=== PATIENT | male | born 1985 | race Caucasian/White ===

== ENCOUNTER 2024-05-13 10:27 | Emergency (ER) | payer BC, SELFPAY ==
[2024-05-13 10:30] VITALS: BP 127/97
[2024-05-13 10:31] VITALS: BMI 28.5
[2024-05-13 10:32] VITALS: BP 127/97
[2024-05-13 11:00] VITALS: BP 132/89
--- NOTE | 2024-05-13 11:13 | ED.GENMED ---
History of Present Illness
General
Chief Complaint: Visual Problem
Source: patient and spouse
Exam Limitations: none
Time Seen by Provider: 05/13/24 10:47
Nursing documentation reviewed up to this point in time: agreed with
History of Present Illness
History of Present Illness:
Patient is a 38-year-old male who presents to the emergency department with a frontal headache after having an episode that started at 915 and resolved at 10:00 of visual blurring with spots as well as left visual field blurring and double vision.
Patient then developed a headache. Patient denies any nausea or vomiting. Patient denies any recent illnesses or injuries. Patient does have mild myopia and astigmatism but only wears glasses at work. Patient denies any previous history of
similar episodes. Patient denies any ataxia, numbness, paresthesias, focal weakness or speech difficulties. Patient denied any chest pain, shortness of breath or palpitations. Patient denies any GI or symptoms. Patient did have an ASD repair
as a child but has been fine since that time.
Past History
Past History
ED Past Medical History: Other (ASD repair as a child)
Social History
Tobacco: Non-smoker
Review of Systems
Review of Systems
All Other Systems: ROS reviewed and negative except as documented in HPI and ROS
Constitutional: Reports no symptoms
EENT: Reports other (Blurring of vision, double vision, blurring in the left visual field)
Respiratory: Reports no symptoms
Cardiac: Reports no symptoms
ABD/GI: Reports no symptoms
: Reports no symptoms
Musculoskeletal: Reports no symptoms
Skin: Reports no symptoms
Neurological: Reports headache; Denies dizzy, weakness or numbness
Hematologic/Lymphatic: Reports no symptoms
Psychiatric: Reports other (Feeling mildly anxious with episode)
Phy Exam
Physical Exam
Physical Exam:
Physical Exam
General: No apparent distress, alert and appropriate, well nourished, well hydrated
HENT: Normocephalic, supple with no lymphadenopathy, no thyromegaly.
Eyes: Clear sclera, conjuctiva without injection, extraocular muscles intact, pupils equal reactive to light and accommodation, funduscopic exam benign, visual easley intact. Eyes are soft to palpation
Heart: Regular rhythm and rate. No S3, S4. No murmur. No NVD, bruit
Lungs: No respiratory distress, no stridor, lung sounds clear and equal bilaterally, chest wall symmetrical and nontender
Abdomen: Soft, nontender, no organomegaly, no CVA tenderness, BS good
Neuro: Alert and oriented x 3, CN II - XII intact, no motor focality, no cerebellar dysfunction
Skin: no rash
Psychiatric: well kept. interactive and cooperative
Extremities: No edema, cyanosis, tenderness, Good and equal peripheral pulses.
Scores
Heart Failure Risk
Heart Failure Risk Score: Not Applicable
Heart Score for Chest Pain Patients
STEMI patient?: Not applicable
Withdrawal Assessment of Alcohol
Withdrawal Assessment Completed?: Not applicable
Course
Orders/Labs/Results
Orders:
Orders
05/13/24 11:12
Lyme Progressive Urgent
Ketorolac [Toradol] 30 mg IM NOW STA
05/13/24 11:13
CT Head W/o Iv Contrast Urgent
Comment:
Reason For Exam: visual field cut and changes
05/13/24 11:23
Complete Blood Count/With Diff Urgent
Comprehensive Metabolic Panel Urgent
Sed Rate [Erythrocyte Sed Rate] Urgent
Abnormal Lab Results
05/13/24
11:23
WBC 3.5 L 10^3/uL
(4.8-10.8)
MCV 79.9 L fL
(80.0-94.0)
Absolute Lymphs (auto) 1.0 L 10^3/uL
(1.2-3.4)
Monocytes % 11.5 H %
(1.7-9.3)
Glucose 106 H mg/dl
(70-99)
Total Bilirubin 1.4 H mg/dl
(0.2-1.3)
Albumin 5.1 H g/dl
(3.5-5.0)
05/13/24 11:23
05/13/24 11:23
Vital Signs
Initial and Last Documented VS:
Initial Vital Signs
BP
127/97
05/13/24 10:30
Last Documented Vital Signs
Temp Pulse Resp BP Pulse Ox
98 F 101 26 132/89 100
05/13/24 10:32 05/13/24 11:30 05/13/24 11:30 05/13/24 11:00 05/13/24 11:30
*Radiology
Radiology exam reviewed: radiology read reviewed (CT unremarkable)
*Pulse Oximetry
Patient hypoxic: no
*EKG
Interpreted by ED Provider?: NA
*Kiln Burner Helper Interpretation
Rate: normal
Interpretation: normal
Heart Rate: 98
Rhythm: sinus
*Critical Care Note
Total Time (30-74mins, 75-104mins- exclusive of procedures): Not Applicable
Update Note
Update Note:
This does not appear to be a central event such as TIA. Could be an ocular migraine. Patient will be discharged to follow-up with ophthalmology.
ED Attending Note
-
Portions of this chart may have been created with voice recognition software.� Occasional wrong word or��sound alike� substitutions may have occurred due to the inherent limitations of voice recognition software.
Discharge Plan
Departure
Patient Disposition: Home (Routine Discharge)
Date of Disposition: 05/13/24
Time of Disposition: 12:53
Patient with high blood pressure during this ER visit?: No
Condition: Fair
Covid-19: Not Applicable
Discharge Problem:
Ophthalmic migraine, Alteration in vision
Instructions: Headache, Adult (DC), Double Vision (DC)
Prescriptions:
No Action
No Current Medications
0
Referrals:
Martin Rogers MD [Family Provider] - As needed
Activity Restrictions/Additional Instructions:
Call your eye doctor tomorrow to follow-up.
Interventions
Interventions:
*Risk Screen - Suicide Last Done: 05/13/24 10:35
*General Assessment Last Done: 05/13/24 10:35
*Neglect/Abuse Screening Last Done: 05/13/24 10:35
ED- Fall Risk Assessment Last Done: 05/13/24 10:35
*ED COVID-19 Vaccine History Last Done: 05/13/24 10:35
ED- Neurological Assessment Last Done: 05/13/24 10:42
ED-EENT Assessment Last Done: 05/13/24 11:32
ED Swallowing Screen Last Done: 05/13/24 11:31
Discharge Date and Time
Print Language: MALTESE
[2024-05-13] MEDS: TORADOL 30 MG IM (11:21)
[2024-05-13 11:53] LABS: % Basophils 0.9 % (0-2); % Eosinophils 3.2 % (0-6); % Immature Granulocytes 0.3 % (0-0.5); % Lymphocytes 27.5 % (20.5-51.1); % Monocytes 11.5 % (1.7-9.3); % Neutrophils 56.6 % (42.2-75.2); Absolute Eosinophils 0.1 10^3/uL (0-0.7); Absolute Monocytes 0.4 10^3/uL (0.1-0.6); Hematocrit 43.4 % (39.0-52.0); Hemoglobin 15.4 g/dL (13.0-18.0); Mean Corp Hgb Conc. 35.5 g/dL (33.0-37.0); Mean Corpuscular Hgb 28.4 pg (27.0-31.0); Mean Corpuscular Volume 79.9 fL (80.0-94.0); Mean Platelet Volume 8.8 fL (7.4-10.4); Nucleated Red Blood Cells % 0 % (-); Platelet Count 265 10^3/uL (130-400); Red Blood Cell Count 5.43 10^6/uL (4.70-6.10); Red Cell Dist. Width 12.1 % (11.5-14.5); White Blood Cell Count 3.5 10^3/uL (4.8-10.8)
[2024-05-13 12:06] LABS: Erythrocyte Sed Rate 7 mm/hour (0-20)
[2024-05-13 12:09] LABS: ALT (SGPT) 23 U/L (0-50); AST (SGOT) 30 U/L (17-59); Albumin 5.1 g/dl (3.5-5.0); Alkaline Phosphatase 47 U/L (38-126); Blood Urea Nitrogen 17 mg/dl (9-20); Calcium 10.2 mg/dl (8.4-10.2); Carbon Dioxide 28 mmol/L (22-30); Chloride 101 mmol/L (98-107); Estimated Creatinine Clearance > 125 ml/min; Glucose 106 mg/dl (70-99); Potassium 4.1 mmol/L (3.5-5.1); Sodium 143 mmol/L (135-145); Total Bilirubin 1.4 mg/dl (0.2-1.3); Total Protein 7.9 g/dl (6.3-8.2); eGFR > 60.00
[2024-05-13 13:07] VITALS: BP 124/86
[2024-05-14 11:23] LABS: Lyme Antibody Screen, EIA Negative (Negative)
== END 2024-05-13 13:30 | disposition home or self-care (01) ==
LOC: EMR 10:27
PROVIDERS: EMERGENCY PHYSICIAN Emergency Medicine; FAMILY PHYSICIAN Family Medicine
DX: G43.109 Migraine with aura, not intractable, without status migrainosus (principal)
CPT/HCPCS: 96372; 99284; 70450; 80053; 85025; 85652; 86618

== ENCOUNTER 2025-03-06 15:03 | Emergency (ER) | payer BC, SELFPAY ==
[2025-03-06 15:13] VITALS: BP 133/82
[2025-03-06 15:28] LABS: Urine Character Clear (Clear)
[2025-03-06 15:43] LABS: ALT (SGPT) 25 U/L (0-50); AST (SGOT) 31 U/L (17-59); Albumin 5.2 g/dl (3.5-5.0); Alkaline Phosphatase 55 U/L (38-126); Blood Urea Nitrogen 12 mg/dl (9-20); Calcium 9.5 mg/dl (8.4-10.2); Carbon Dioxide 26 mmol/L (22-30); Chloride 105 mmol/L (98-107); Glucose 102 mg/dl (70-99); Potassium 3.8 mmol/L (3.5-5.1); Sodium 141 mmol/L (135-145); Total Protein 8.0 g/dl (6.3-8.2); eGFR > 60.00
[2025-03-06 15:49] LABS: Urine Red Blood Cell 0-2 /HPF (0-2)
[2025-03-06 15:54] LABS: Troponin I < 0.012 ng/ml
--- NOTE | 2025-03-06 19:31 | ED.GENMED ---
History of Present Illness
General
Chief Complaint: Dizziness
Time Seen by Provider: 03/06/25 19:16
History of Present Illness
History of Present Illness:
39-year-old male presents to the emergency department for evaluation of dizziness and lightheadedness that occurred today while working. 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 Notes he had a similar episode about 3 weeks ago
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 He did have heart palpitations with the first episode but not with today's episode. Has felt well since coming to the ER. No chest pain or shortness of breath. Denies illicit substance use.
Past History
Past History
ED Past Medical History: Other (ASD repair as a child)
Social History
Tobacco: Non-smoker
Review of Systems
Review of Systems
Allergies reviewed?: Yes
Phy Exam
Physical Exam
Physical Exam:
GEN: Well appearing, NAD, WDWN
HEENT: Oral mucosa moist, no scleral icterus
Cardiac: Regular rate and rhythm, no murmurs
Lung: No respiratory distress, no tachypnea
MSK: No gross deformity or injuries
Skin: Good color, no pallor or jaundice, no rashes
Neuro: AO x3, moves all extremities freely
Psych: Calm, cooperative
Course
Orders/Labs/Results
Orders:
Orders
03/06/25 15:05
Electrocardiogram (*1) Urgent
Reason for Study: Vertigo / Dizzy
03/06/25 15:06
EKG- Treatment ONCE
03/06/25 15:15
Cardiac Monitoring- Treatment ONCE
IV Insert/Care/Rem.- Treatment PRN
O2 Therapy [RESP] Urgent
Titrate/Wean O2 to maintain O2 sat greater than (%): 90
Special Instructions: Maintain sats >/=90%
Pulse Ox/spot Check [RESP] Urgent
Quantity: 1
Special Instructions: ON ROOM AIR
03/06/25 15:19
Comprehensive Metabolic Panel Urgent
Troponin I Urgent
Urinalysis Reflex To Culture Urgent
Date Specimen was Collected: 03/06/25
Time Specimen was Collected: 15:05
Urine Microscopic Reflex Cult Urgent
Urine Culture Urgent
CORBIN Source: U
Specimen Description:
Date Specimen was Collected: 03/06/25
Time Specimen was Collected: 15:05
Abnormal Lab Results
03/06/25
15:19
Glucose 102 H mg/dl
(70-99)
Albumin 5.2 H g/dl
(3.5-5.0)
Leukocyte Esterase Rfl 1+ A
(Negative)
Urine WBC (Reflex) 11-15 A /HPF
(0-5)
Urine Bacteria (Reflex) Few A
(Negative)
03/06/25 18:45
03/06/25 15:19
Vital Signs
Initial and Last Documented VS:
Initial Vital Signs
Temp Pulse Resp BP Pulse Ox
98.1 F 100 18 133/82 100
03/06/25 15:13 03/06/25 15:13 03/06/25 15:13 03/06/25 15:13 03/06/25 15:13
Last Documented Vital Signs
Temp Pulse Resp BP Pulse Ox
98.1 F 96 20 130/74 99
03/06/25 15:13 03/06/25 20:19 03/06/25 20:19 03/06/25 20:19 03/06/25 20:19
MDM/Problems Addressed
MDM/Problems Addressed:
Likely heat exhaustion based on patient's clinical description, doubt cardiac dysrhythmia given lack of palpitations. Workup was broadly unremarkable
*Pulse Oximetry
SaO2: 100
Oxygen Mode of Delivery: Room air
Patient hypoxic: no
*Critical Care Note
Total Time (30-74mins, 75-104mins- exclusive of procedures): Not Applicable
ED Attending Note
-
Portions of this chart may have been created with voice recognition software.� Occasional wrong word or��sound alike� substitutions may have occurred due to the inherent limitations of voice recognition software.
Discharge Plan
Departure
Patient Disposition: Home (Routine Discharge)
Date of Disposition: 03/06/25
Time of Disposition: 19:34
Patient with high blood pressure during this ER visit?: No
Discharge Problem:
Heat exhaustion
Instructions: Heat Illness ED
Prescriptions:
No Action
No Current Medications
0
Referrals:
PRIVATE,PHYSICIAN [Family Provider, Internal Medicine]
Interventions
Interventions:
*Risk Screen - Suicide Last Done: 03/06/25 15:13
*Neglect/Abuse Screening Last Done: 03/06/25 15:13
*Nursing Disposition Last Done: 03/06/25 22:04
ED- Cardiac Assessment Last Done: 03/06/25 18:31
Discharge Date and Time
Discharge Date/Time: 03/06/25 22:05
Print Language: KOREAN
[2025-03-06 20:19] VITALS: BP 130/74
== END 2025-03-06 22:05 | disposition home or self-care (01) ==
LOC: EMR 15:03
PROVIDERS: Emergency Medicine; EMERGENCY PHYSICIAN Emergency Medicine
DX: R42 Dizziness and giddiness (principal); R53.83 Other fatigue; T67.5XXA Heat exhaustion, unspecified, initial encounter; X32.XXXA Exposure to sunlight, initial encounter; Y93.89 Activity, other specified; Y92.89 Other specified places as the place of occurrence of the external cause; Y99.0 Civilian activity done for income or pay
CPT/HCPCS: 99283; 94760; 80053; 81003; 81015; 84484; 87086; 93005

== ENCOUNTER 2025-07-04 16:24 | Emergency (ER) | payer BC, SELFPAY ==
[2025-07-04 16:34] VITALS: BP 146/93
[2025-07-04 16:57] LABS: Hematocrit 43.2 % (39.0-52.0); Hemoglobin 15.2 g/dL (13.0-18.0); Mean Corp Hgb Conc. 35.2 g/dL (33.0-37.0); Mean Corpuscular Volume 78.5 fL (80.0-94.0); Nucleated Red Blood Cells % 0 % (-); Platelet Count 281 10^3/uL (130-400); Red Cell Dist. Width 11.7 % (11.5-14.5)
[2025-07-04 17:19] LABS: ALT (SGPT) 21 U/L (0-50); AST (SGOT) 26 U/L (17-59); Albumin 5.3 g/dl (3.5-5.0); Alkaline Phosphatase 52 U/L (38-126); Blood Urea Nitrogen 10 mg/dl (9-20); Calcium 10.1 mg/dl (8.4-10.2); Carbon Dioxide 29 mmol/L (22-30); Chloride 99 mmol/L (98-107); Glucose 88 mg/dl (70-99); Potassium 4.0 mmol/L (3.5-5.1); Sodium 137 mmol/L (135-145); Total Protein 8.7 g/dl (6.3-8.2); eGFR > 60.00
[2025-07-04 17:30] LABS: Troponin I < 0.012 ng/ml
[2025-07-04 17:35] VITALS: BMI 28.6
--- NOTE | 2025-07-04 17:41 | ED.GENMED ---
History of Present Illness
General
Chief Complaint: Heart Rate Problem
Source: patient
Exam Limitations: none
Time Seen by Provider: 07/04/25 17:39
History of Present Illness
History of Present Illness:
39yoM with a history of an atrial septal defect as a child s/p open repair at the age of 6 presenting for evaluation of palpitations. Patient reports intermittent palpitations over the past 5 days. Symptoms seem to come on randomly and there are
days where he has no symptoms. He describes feeling like his heart is racing. Episodes will typically last 1 hour before resolving. Symptoms improve when he rests and takes deep breaths. During these episodes, he will also experience some
tingling on the left side of his face and dizziness. No associated chest pain or syncope. He is currently asymptomatic. He has checked his Apple Watch these episodes and his heart rate has been in the 80s and no A-fib has been detected. He
drinks 1 cup of coffee daily but has not increased his caffeine intake. No prescription medications. He is scheduled to see a communication signals intelligence at [facility] on 07/19/2025 to reestablish care. He has not seen a communication signals intelligence since the age of 19 but
had an echocardiogram 2 to 3 years ago which was reportedly normal.
Past History
Past History
ED Past Medical History: Other (ASD repair as a child)
Social History
Tobacco: Non-smoker
Phy Exam
General Physical Exam
General Presentation: well appearing and no apparent distress
General Skin: warm and dry
General Habitus: normal
General Mental: alert
ENT Exam
ENT Exam: normocephalic
Cardiovascular Exam
Cardiovascular Exam: regular rate/rhythm, no edema, no murmur and normal peripheral pulses (2+ DP pulses bilaterally)
Pulmonary Exam
Pulmonary Exam: lungs clear, no respiratory distress, no rales, no crackles, no rhonchi and no wheezing
Neurological Exam
Neurological Exam: alert, speech normal and other (No facial asymmetry)
Mer Coma Scale
Eye Opening: Spontaneous
Verbal Response: Oriented
Motor Response: Obeys Commands
GCS Total Score: 15
Skin Exam
Skin Exam: normal color and warm/dry
Psychiatric Exam
Psychiatric Exam: normal mood/affect
Course
Orders/Labs/Results
Orders:
Orders
07/04/25 16:36
Electrocardiogram (*1) Urgent
Reason for Study: Palpitations
07/04/25 16:37
EKG- Treatment ONCE
07/04/25 16:48
Complete Blood Count/With Diff Urgent
Comprehensive Metabolic Panel Urgent
TSH Reflex To Free T4 Urgent
Troponin I Urgent
07/04/25 17:41
Cardiac Monitoring- Treatment ONCE
Abnormal Lab Results
07/04/25
16:48
WBC 4.6 L 10^3/uL
(4.8-10.8)
MCV 78.5 L fL
(80.0-94.0)
Immature Gran % 0.7 H %
(0-0.5)
Monocytes % 11.6 H %
(1.7-9.3)
Total Protein 8.7 H g/dl
(6.3-8.2)
Albumin 5.3 H g/dl
(3.5-5.0)
07/04/25 16:48
07/04/25 16:48
Vital Signs
Initial and Last Documented VS:
Initial Vital Signs
Temp Pulse Resp BP Pulse Ox
98.4 F 74 18 146/93 98
07/04/25 16:34 07/04/25 16:34 07/04/25 16:34 07/04/25 16:34 07/04/25 16:34
Last Documented Vital Signs
Temp Pulse Resp BP Pulse Ox
98.6 F 69 18 116/84 97
07/04/25 18:58 07/04/25 18:58 07/04/25 18:58 07/04/25 18:58 07/04/25 18:58
MDM/Problems Addressed
Differential Diagnosis Includes:
39yoM here with palpitations. Intermittent episodes of heart racing feeling for a few days. Associated with L facial tingling. No CP. No syncope. VSS. Patient well-appearing in no distress. Exam reassuring. Differential diagnosis includes but is
not limited to: PVCs, arrhythmia, thyroid dysfunction, electrolyte abnormality
Workup initiated in triage. EKG shows normal sinus rhythm with T wave inversion in V2 which is stable from prior EKG in February. Troponin undetectable. Electrolytes and TSH normal. Normal sinus rhythm noted on monitor during assessment. No
indication for hospitalization. He has an appointment scheduled with cardiology in 2 weeks and discussed likely need for outpatient Holter monitor. ED return precautions reviewed and he was discharged in stable condition.
*Pulse Oximetry
SaO2: 100
Oxygen Mode of Delivery: Room air
Patient hypoxic: no
*EKG
Interpreted by ED Provider?: Yes
EKG Intrepretation Date: 07/04/25
Heart Rate: 77
Rate: normal
Rhythm: sinus
[place]: normal axis
Interval: normal interval
QRS Pattern: normal QRS
Ischemia: T-wave inversion (T wave inversion in V2, also present on EKG in February 2025)
*Critical Care Note
Total Time (30-74mins, 75-104mins- exclusive of procedures): Not Applicable
ED Attending Note
-
Portions of this chart may have been created with voice recognition software.� Occasional wrong word or��sound alike� substitutions may have occurred due to the inherent limitations of voice recognition software.
Discharge Plan
Departure
Patient Disposition: Home (Routine Discharge)
Date of Disposition: 07/04/25
Time of Disposition: 18:09
Patient with high blood pressure during this ER visit?: No
Discharge Problem:
Palpitations
Instructions: Palpitations (DC)
Prescriptions:
No Action
No Current Medications
0
Referrals:
PRIVATE,PHYSICIAN [Active, Internal Medicine]
Activity Restrictions/Additional Instructions:
Please follow-up with your family doctor and cardiology and discuss outpatient Holter monitor.
Return to the ER with any new or worsening symptoms including chest pain or passing out.
Interventions
Interventions:
*Risk Screen - Suicide Last Done: 07/04/25 16:34
*General Assessment Last Done: 07/04/25 16:34
*Neglect/Abuse Screening Last Done: 07/04/25 16:34
*ED- Fall Risk Assessment Last Done: 07/04/25 17:37
*ED COVID-19 Vaccine History Last Done: 07/04/25 17:37
*ED Influenza Vaccine History Last Done: 07/04/25 17:37
*Nursing Disposition Last Done: 07/04/25 18:58
ED- Cardiac Assessment Last Done: 07/04/25 17:37
ED- Pulmonary Assessment Last Done: 07/04/25 17:37
Discharge Date and Time
Discharge Date/Time: 07/04/25 18:40
Print Language: GREENLANDIC
--- NOTE | 2025-07-04 18:57 | EDRN ---
Reviewed discharge instructions with patient. Verbalized understanding. Ambulated with steady gait to the lobby.
[2025-07-04 18:58] VITALS: BP 116/84
== END 2025-07-04 18:40 | disposition home or self-care (01) ==
LOC: EMR 16:24
PROVIDERS: Emergency Medicine; EMERGENCY PHYSICIAN Emergency Medicine; FAMILY PHYSICIAN Family Medicine
DX: R00.2 Palpitations (principal); Z87.74 Personal history of (corrected) congenital malformations of heart and circulatory system
CPT/HCPCS: 99284; 80053; 84443; 84484; 85025; 93005